=== PATIENT | male | born 1990 | race Hispanic/Latino ===

== ENCOUNTER 2017-09-28 09:34 | Emergency (ER) | payer OTHER, SELFPAY | END 2017-09-28 10:13 | disposition home or self-care (01) | LOC: SCSER 09:34 | DX: J06.9 Acute upper respiratory infection, unspecified (principal); H10.13 Acute atopic conjunctivitis, bilateral; F17.210 Nicotine dependence, cigarettes, uncomplicated | CPT/HCPCS: 99406 ==

== ENCOUNTER 2021-07-04 02:00 | Emergency (ER) | payer OTHER, BC ==
[2021-07-04] MEDS ORDERED: Ketorolac Tromethamine 30 MG/ML VIAL ONE (22:46)
== END 2021-07-04 23:29 | disposition home or self-care (01) ==
LOC: ERS 22:00
DX: R07.81 Pleurodynia (principal); F17.210 Nicotine dependence, cigarettes, uncomplicated; V43.52XA Car driver injured in collision with other type car in traffic accident, initial encounter
CPT/HCPCS: 96374; J1885